=== PATIENT | female | born 1980 | race Caucasian/White ===

== ENCOUNTER 2020-11-13 02:25 | Emergency (ER) | payer OTHER, SELFPAY ==
--- NOTE | ~2020-11-13 | CT_ITS ---
EXAMINATION: CT abdomen pelvis wo con DATE: 11/13/2020 03:30 INDICATION: Right flank pain. Dysuria. TECHNIQUE: Computed tomography (CT) of the abdomen and pelvis was performed without intravenous contr ast. Automated exposure control and iterative reconstruction technique were employed. The dose-length product was 339.42 mGy-cm. COMPARISON: None FINDINGS: Lung bases are clear. Heart size is normal. No pericardial or pleural effusion. Liver, gallbladder, s pleen, pancreas and bilateral adrenal glands are normal. Bilateral kidneys are normal with no nephrol ithiasis or hydronephrosis. There is suggestion of mild urothelial thickening at the right renal pelv is and proximal right ureter and would correlate with urinalysis to exclude ascending urinary tract i nfection. Bladder, uterus and bilateral adnexa are unremarkable. No abnormal bowel wall thickening or obstruction. Appendix is normal. No free intraperitoneal gas or fluid. No pathologically enlarged ab dominal or pelvic lymphadenopathy. Bones are unremarkable. IMPRESSION: 1. Urothelial thickening along the proximal right ureter which could be seen with ascending urinary t ract infection. Correlate with urinalysis. No urolithiasis or hydronephrosis. Reviewed, dictated and finalized at location A. IMPRESSION: 1. Urothelial thickening along the proximal right ureter which could be seen wi th ascending urinary tract infection. Correlate with urinalysis. No urolithiasi s or hydronephrosis.
[2020-11-13 02:31] VITALS: BP 124/71; PULSE 100; RESP 20; TEMP 37.3; O2SAT 100
--- NOTE | 2020-11-13 02:42 | PC.NURSE ---
pt arrives hyperventilating from triage. c/o painful, burning c urination x 2 days. placed in gown and vitals obtained on arrival.
--- NOTE | 2020-11-13 02:59 | ED.FEMALEGU ---
HPI - Female Genitourinary General Chief complaint: Urogenital-Female Stated complaint: abd pain, uti Time Seen by Provider: 11/13/20 03:09 Source: patient Mode of arrival: ambulatory Limitations: no limitations History of Present Illness HPI Narrative: Patient is a 40-year-old female complaining of right flank pain accompanied by dysuria that started tonight. Patient states that her pain is 9 out of 10, sharp, nonradiating. Patient denies any chest pain, shortness of breath, abdominal pain, vomiting, diarrhea, fever or chills. Related Data Allergies Allergy/AdvReac Type Severity Reaction Status Date / Time No Known Allergies Allergy Verified 11/13/20 02:50 Review of Systems Review of Systems: All systems reviewed & are unremarkable except as noted in HPI and below Constitutional: Constitutional: Denies body ache(s), Denies chills, Denies excessive sweating, Denies fatigue, Denies fever(s), Denies headache(s), Denies lethargy, Denies malaise, Denies weakness and Denies weight loss Eyes: Eyes: Denies blurry vision, Denies change in vision and Denies loss of vision ENT: Denies dizziness, Denies ear discharge, Denies headache(s), Denies lip swelling, Denies epistaxis, Denies nasal congestion, Denies neck pain, Denies throat swelling and Denies tongue swelling Cardiovascular: Cardiovascular: Denies chest pain, Denies chest pain at rest, Denies chest pain with activity, Denies diaphoresis, Denies rapid heart rate, Denies edema, Denies irregular heart rhythm, Denies lightheadedness, Denies palpitations, Denies dyspnea and Denies dyspnea on exertion Respiratory: Respiratory: Denies chest congestion, Denies cough, Denies hemoptysis, Denies dyspnea and Denies dyspnea on exertion Gastrointestinal: Gastrointestinal: Denies abdominal pain, Denies melena, Denies hematochezia, Denies diarrhea, Denies nausea, Denies vomiting and Denies hematemesis Musculoskeletal: Musculoskeletal: Denies abnormal gait, Denies deformity, Denies joint swelling, Denies limited range of motion, Denies neck pain and Denies numbness Neurologic: Denies Abnormal speech present, Denies abnormal gait, Denies confusion, Denies dizziness, Denies headache(s), Denies focal weakness, Denies loss of vision, Denies numbness, Denies Other visual disturbances, Denies Sensory deficit (Neuro) and Denies weakness Psychiatric: Psychiatric: Denies confusion, Denies depression, Denies auditory hallucinations, Denies homicidal ideation and Denies suicidal ideation Endocrine: Endocrine: Denies cold intolerance, Denies excessive sweating, Denies fatigue, Denies heat intolerance and Denies palpitations Hematologic/Lymphatic: Hematologic/Lymphatic: Denies easy bleeding and Denies easy bruising Allergic/Immunologic: Allergic/Immunologic: Denies lip swelling, Denies throat swelling and Denies tongue swelling PMFSH Comments Past medical history: None Family history: Noncontributory Social history: Smoker, no EtOH or drug use Course Vital Signs Vital signs: Vital Signs Temperature 37.3 C 11/13/20 02:31 Pulse Rate 100 11/13/20 02:31 Respiratory Rate 20 11/13/20 02:31 Blood Pressure 124/71 11/13/20 02:31 Pulse Oximetry 100 11/13/20 02:31 Temperature 37.3 C 11/13/20 02:31 Pulse Rate 101 H 11/13/20 04:04 Respiratory Rate 18 11/13/20 04:04 Blood Pressure 117/71 11/13/20 04:04 Pulse Oximetry 98 11/13/20 04:04 MDM - Female Genitourinary MDM Narrative Medical decision making narrative: I reviewed her labs and her CT abdomen pelvis. Her CBC is elevated with no left shift. Her chemistry is within normal limits. Her CT scan of abdomen pelvis shows mild urothelial thickening suggestive of right ureter with borderline wall thickening of the urinary bladder which could be correlated with urinalysis to evaluate for urinary tract infection. Patient was given Rocephin 1 g IV x1. And will be placed on oral antibiotic treatment and will manage on an outpatient ba
[2020-11-13] MEDS: SODIUM CHLORIDE 0.9% IV 1,000 ML 999 ML IV CONT (03:19)
[2020-11-13] MEDS: KETOROLAC 30 MG/ML VIAL (*BKC) IV PUSH (03:20)
[2020-11-13 03:27] LABS: Basophils Percent Auto 0.3 % (0.2-1.2); Eosinophils Absolute Auto 0.1 K/mm3 (0-0.3); Eosinophils Percent Auto 0.5 % (0-4.4); Hematocrit 37.2 % (37.0-47.0); Hemoglobin 12.6 g/dL (12.0-15.0); Immature Granulocyte Absolute 0.05 K/mm3 (0.00-0.031); Immature Granulocyte Percent A 0.4 % (0-0.5); Lymphocytes Absolute Auto 0.48 K/mm3 (0.9-3.2); Lymphocytes Percent Auto 3.7 % (18.3-44.2); Mean Corpuscular HGB Conc 33.9 g/dl (32-36); Mean Corpuscular Hemoglobin 31.7 pg (26-34); Mean Corpuscular Volume 93.5 fl (80-100); Mean Platelet Volume 8.8 fl (7.4-10.4); Monocytes Percent Auto 7.3 % (2.6-8.5); Neutrophils Absolute Auto 11.6 K/mm3 (1.3-6.7); Neutrophils Percent Auto 87.8 % (45.5-73.1); Platelet Count Result 300 k/mm3 (150-375); Red Blood Count 3.98 M/mm3 (4.2-5.4); Red Cell Distribution Width 11.9 % (11.5-14.5); White Blood Count 13.2 K/mm3 (4.5-10.0)
[2020-11-13 03:36] LABS: Add Urine Microscopic? YES; Appearance Urine Clear (Clear); Bilirubin Urine Negative (Negative); Blood Urine Negative (Negative); Color Urine Yellow (Yellow); Glucose Urine UA Negative (Negative); Ketones Urine Trace mg/dL (Negative); Leukocyte Esterase Ur 2+ LEU/UL (Negative); Nitrate Urine Negative (Negative); Protein Urine 2+ mg/dL (Negative); Specific Grav Ur 1.014 (1.001-1.035); Squamous Epithelial Cell Urine Moderate /hpf (Few); Urobilinogen Urine Negative mg/dL (<2.0); WBC Urine >75 /hpf
[2020-11-13 03:37] LABS: Anion Gap 10 mmol/L (8-16); Blood Urea Nitrogen 9 mg/dL (7-17); Calcium 9.3 mg/dL (8.4-10.2); Carbon Dioxide 20 mmol/L (22-30); Chloride 102 mmol/L (98-107); Estimated CRCL calculation 67 ml/min; Estimated Glomerular Filt Rate > 60; Glucose 140 mg/dL (65-105); Potassium 3.4 mmol/L (3.4-5.0); Sodium 132 mmol/L (137-145)
[2020-11-13 04:04] VITALS: BP 117/71; PULSE 101; RESP 18; O2SAT 98
[2020-11-13] MEDS: HYDROmorphone HCL INJ (*CRX) 1 MG/ML SYR 0.5 MG IV PUSH (04:05)
[2020-11-13 05:10] VITALS: BP 112/68; PULSE 97; RESP 16; O2SAT 99
[2020-11-13 05:38] VITALS: BP 113/72; PULSE 100; RESP 16; O2SAT 99
--- NOTE | 2020-11-13 05:38 | PC.NURSE ---
Pt contacted family member for ride home at this time.
== END 2020-11-13 05:38 | disposition home or self-care (01) ==
PROVIDERS: Emergency Provider Emergency Medicine
DX: N30.00 Acute cystitis without hematuria (principal)
CPT/HCPCS: 36415; 74176; 80048; 81001; 85025; 87077; 87086; 87088; 87186; 96361; 96365; 96375; 99284; J0696; J1170; J1885; J7030

== ENCOUNTER 2020-11-14 13:46 | Emergency (ER) | payer OTHER, SELFPAY ==
--- NOTE | 2020-11-14 13:57 | ED.GENADULT ---
HPI - General Adult General Chief complaint: Urogenital-Female Stated complaint: UTI Time Seen by Provider: 11/14/20 13:55 History of Present Illness HPI narrative: Patient is a 40-year-old female otherwise healthy who comes emergency room today complaining of urinary urgency, frequency, dysuria, right-sided lower abdominal pain and flank pain along with diffuse body aches and chills and overall not feeling well. The symptoms started yesterday morning. She came to the emergency room and was diagnosed with a urinary tract infection and prescribed Bactrim which she has been compliant with. She has not tried any Tylenol or ibuprofen for her pain. Her symptoms have not gotten worse but they have also not gotten better. He denies any vaginal discharge or concern for STD. Related Data Home Medications Medication Instructions Recorded Confirmed montelukast [Singulair] 10 mg PO HS 11/14/20 Allergies Allergy/AdvReac Type Severity Reaction Status Date / Time No Known Allergies Allergy Verified 11/14/20 14:06 Review of Systems Constitutional: Constitutional: Reports as per HPI, Reports body ache(s), Reports chills, Denies fever(s), Denies night sweats and Denies weakness Cardiovascular: Cardiovascular: Denies chest pain, Denies edema, Denies leg edema, Denies dyspnea and Denies orthopnea Respiratory: Respiratory: Denies cough and Denies dyspnea Gastrointestinal: Gastrointestinal: Denies abdominal pain, Denies constipation, Denies diarrhea, Denies nausea and Denies vomiting Comments: See HPI Genitourinary: Genitourinary: Denies genital lesions and Denies vaginal discharge Musculoskeletal: Musculoskeletal: Denies abnormal gait, Denies back pain, Denies numbness and Denies tingling Neurologic: Denies Abnormal speech present, Denies abnormal gait, Denies numbness, Denies tingling and Denies weakness Psychiatric: Psychiatric: Denies homicidal ideation and Denies suicidal ideation [facility] Social History Social History Gender identity (if verbalized by the patient): Female Exam Const: General: cooperative, healthy appearing, no acute distress, well developed, alert, awake and Physically active Orientation/consciousness: patient oriented x3 Other: Uncomfortable appearing HENMT: Head: normal to inspection, normocephalic and atraumatic Ears: external ears normal General nose exam: Normal external nose present Eyes: Pupils: Equal, round and reactive pupils present EOM: EOMs intact bilaterally Neck: Neck: normal visual inspection Chest: Chest palpation & inspection: normal inspection of the chest and no tenderness Resp: Effort & Inspection: normal respiratory effort and able to speak in complete sentences Auscultation: clear to auscultation bilaterally Cardio: Rate: regular rate Rhythm: regular rhythm GI: Inspection: normal to inspection GI Palp: No abdominal tenderness Other: Tender to palpate over right lower quadrant and right flank. No CVA tenderness. : General: Yes no CVA tenderness Back/Spine/Pelvis: Back: no CVA tenderness Thoracic/Lumbar Spine: thoracic and lumbar spine normal to inspection and thoraco-lumbar ROM normal Other: No midline lumbar tenderness. Skin: General skin exam: normal color and no rashes or lesions noted Lesions: no lesions Neuro: General: patient oriented x3, no focal motor deficits and CN's II-XI intact bilaterally Cranial nerves: Yes Equal, round and reactive pupils present Speech: No Abnormal speech present Extrem: General: normal to inspection and full ROM Psych: Appearance: grossly normal and well kempt Mental Status: mental status grossly normal Speech and movement: Normal speech and movement present Affect: normal affect Thought process: Normal thought process present Course Course Emergency Course: Review of medical record shows patient was seen here yesterday for these symptoms. Urinalysis positive for UTI, u
[2020-11-14 14:00] VITALS: BP 110/69; PULSE 100; RESP 18; TEMP 36.6; O2SAT 100
[2020-11-14 14:37] LABS: Add Urine Microscopic? YES; Appearance Urine Cloudy (Clear); Bacteria Urine Trace /hpf; Bilirubin Urine Negative (Negative); Blood Urine Negative (Negative); Color Urine Yellow (Yellow); Glucose Urine UA Negative (Negative); Ketones Urine Trace mg/dL (Negative); Leukocyte Esterase Ur Trace LEU/UL (Negative); Mucus Urine Moderate /lpf; Nitrate Urine Negative (Negative); Protein Urine 2+ mg/dL (Negative); Specific Grav Ur 1.021 (1.001-1.035); Squamous Epithelial Cell Urine Many /hpf (Few)
[2020-11-14 15:13] LABS: Basophils Percent Auto 0.3 % (0.2-1.2); Eosinophils Percent Auto 0.4 % (0-4.4); Hematocrit 38.3 % (37.0-47.0); Hemoglobin 13.1 g/dL (12.0-15.0); Immature Granulocyte Absolute 0.04 K/mm3 (0.00-0.031); Immature Granulocyte Percent A 0.4 % (0-0.5); Lymphocytes Absolute Auto 0.98 K/mm3 (0.9-3.2); Lymphocytes Percent Auto 10.4 % (18.3-44.2); Mean Corpuscular HGB Conc 34.2 g/dl (32-36); Mean Corpuscular Hemoglobin 32.1 pg (26-34); Mean Corpuscular Volume 93.9 fl (80-100); Mean Platelet Volume 8.4 fl (7.4-10.4); Monocytes Percent Auto 10.9 % (2.6-8.5); Neutrophils Absolute Auto 7.3 K/mm3 (1.3-6.7); Neutrophils Percent Auto 77.6 % (45.5-73.1); Platelet Count Result 268 k/mm3 (150-375); Red Blood Count 4.08 M/mm3 (4.2-5.4); Red Cell Distribution Width 11.9 % (11.5-14.5); White Blood Count 9.4 K/mm3 (4.5-10.0)
[2020-11-14] MEDS: LACTATED RINGERS 1,000 ML 999 ML IV CONT (15:14)
[2020-11-14] MEDS: ACETAMINOPHEN 325 MG TABLET 650 MG PO (15:15)
[2020-11-14] MEDS: KETOROLAC 30 MG/ML VIAL (*BKC) IV PUSH (15:16)
[2020-11-14 15:26] LABS: Alanine Aminotransferase 11 U/L (4-35); Albumin Level 3.8 g/dL (3.5-5.1); Alkaline Phosphatase 50 U/L (38-126); Anion Gap 8 mmol/L (8-16); Aspartate Amino Transferase 19 U/L (14-36); Bilirubin,Total 0.5 mg/dL (0.2-1.3); Blood Urea Nitrogen 4 mg/dL (7-17); Calcium 8.7 mg/dL (8.4-10.2); Carbon Dioxide 21 mmol/L (22-30); Chloride 105 mmol/L (98-107); Estimated CRCL calculation 75 ml/min; Estimated Glomerular Filt Rate > 60; Glucose 109 mg/dL (65-105); Potassium 3.7 mmol/L (3.4-5.0); Sodium 134 mmol/L (137-145)
[2020-11-14 15:27] LABS: Lactic Acid Reflex 1.2 mmol/L (0.7-2.1)
[2020-11-14 16:27] VITALS: BP 113/74; PULSE 81; RESP 16; O2SAT 100
[2020-11-14] MEDS: ONDANSETRON HCL ODT 4 MG TABLET PO (17:11)
[2020-11-14] MEDS: HYDROcodone/acetaminophen (*CRX) 5-325 MG TABLET 1 TAB PO (17:11)
[2020-11-14 18:26] VITALS: BP 115/71; PULSE 88; RESP 16; O2SAT 100
[2020-11-14 18:58] VITALS: BP 101/69; PULSE 86; RESP 16; O2SAT 100
== END 2020-11-14 19:04 | disposition home or self-care (01) ==
PROVIDERS: Physician Assistant Medical; Emergency Provider Emergency Medicine
DX: N12 Tubulo-interstitial nephritis, not specified as acute or chronic (principal)
CPT/HCPCS: 36415; 80053; 81001; 81025; 83605; 85025; 87086; 96365; 96375; 99284; A9270; J0696; J1885; J7120